=== PATIENT | male | born 1970 | race Caucasian/White ===

== ENCOUNTER 2017-04-25 13:22 | Outpatient (CLI) | payer OTHER, MEDICAID | END 2017-04-25 19:50 | disposition home or self-care (01) | LOC: FOBOP 13:22 | PROVIDERS: ATTEND Internal Medicine Hematology & Oncology | PROC: 30233N1 Transfusion of Nonautologous Red Blood Cells into Peripheral Vein, Percutaneous Approach (ICD-10-PCS; principal; 2017-04-25) | DX: D50.9 Iron deficiency anemia, unspecified (principal) | CPT/HCPCS: 36430; P9016 ==